=== PATIENT | male | born 1975 | race Two or more races ===

== ENCOUNTER 2020-03-22 23:52 | Inpatient (IN) | payer MEDICAID ==
[~2020-03-22] VITALS: Ht 172.7 cm; Wt 108.1 kg
[2020-03-23] MEDS ORDERED: cloNIDine HCL 0.1 MG TAB PO ONE (01:15)
[2020-03-23] MEDS ORDERED: cefTRIAXone 1GM/50ML D5W 50 ML IV ONE (01:30)
[2020-03-23] MEDS ORDERED: CLINDAMYCIN 900MG IV 50 ML IV ONE (01:30)
[2020-03-23 01:53] LABS: Basophils # (auto) 0.1 10 ^3/uL (0-0.2); Basophils % (auto) 0.8 % (0.0-2.0); Eosinophils # (auto) 0.3 10 ^3/uL (0-0.8); Eosinophils % (auto) 3.2 % (0.0-7.0); Hematocrit 31.7 % (41.0-53.0); Hemoglobin 10.7 g/dL (13.5-17.5); Lymphocytes # (auto) 2.1 10 ^3/uL (0.4-5.4); Lymphocytes % (auto) 20.6 % (10.0-50.0); Mean Corpuscular Hemoglobin 25.3 pg (28.0-32.0); Mean Corpuscular Hgb Conc. 33.7 g/dL (32.0-36.0); Mean Corpuscular Volume 75.1 fL (80.0-100.0); Monocytes % (auto) 9.4 % (0.0-12.0); Neutrophils # (auto) 6.8 10 ^3/uL (1.6-8.6); Platelet Count (auto) 264 10^3/uL (140-450); Red Blood Cells 4.22 10^6/uL (4.5-5.90); Red Cell Distribution Width 14.6 % (11.8-14.3); White Blood Cell 10.2 10^3/uL (4.4-10.8)
[2020-03-23 02:15] LABS: Calcium 8.7 mg/dL (8.5-10.1); Potassium 3.2 mmol/L (3.5-5.1)
[2020-03-23 02:18] LABS: Albumin 3.1 g/dL (3.4-5.0); BUN/Creatinine Ratio 21.8
[2020-03-23 02:21] LABS: Bilirubin, Total 0.2 mg/dL (0.2-1.0); Total Protein 8.4 g/dL (6.4-8.2)
[2020-03-23] MEDS ORDERED: SODIUM CHLORIDE 0.9% 500 ML IV ONE (03:15)
[2020-03-23] MEDS ORDERED: TEMAZEPAM 15 MG CAP PO PRN (03:15)
[2020-03-23] MEDS ORDERED: DEXTROSE (50%) 50ML SYRG IV PRN (03:15)
[2020-03-23] MEDS ORDERED: ACETAMINOPHEN 325 MG TAB PO PRN (03:15)
[2020-03-23] MEDS ORDERED: cloNIDine HCL 0.1 MG TAB PO PRN (03:15)
[2020-03-23] MEDS ORDERED: HYDROcodone-ACET 5/325MG TAB PO PRN (03:15)
[2020-03-23] MEDS ORDERED: ONDANSETRON HCL 4 MG/2 ML VIAL IV PRN (03:15)
[2020-03-23] MEDS ORDERED: CLINDAMYCIN 600MG IV 50 ML IV SCH (06:00)
[2020-03-23] MEDS: InsuLIN REG 1unit/0.01ml Soln (100units/ml) SC SCH ×4 (06:45→22:14)
[2020-03-23] MEDS: ACCU-CHEK COMFORT CURVE STRIP VI SCH ×4 (06:45→21:15)
--- NOTE | 2020-03-23 08:25 | NUR ---
PATIENT IN LOW FOWLERS. AWAKE, ALERT, ORIENTEDx4. DENIES PAIN AT MOMENT. EFFORTLESS BREATHING ON ROOM AIR. PRESENT FOR WOUND TO LATERAL OUTER ASPECT OF RIGHT FOOT. IV PRESENT TO LAC#20. PT ORIENTED TO ROOM ENVIRONMENT, BED LOCKED AND IN LOWEST POSITION, CALL LIGHT WITHIN REACH. WILL CONTINUE TO MONITOR.
[2020-03-23] MEDS: PANTOPRAZOLE 40 MG TAB PO SCH (09:49)
[2020-03-23] MEDS: cefTRIAXone 1GM/50ML D5W 50 ML IV SCH (09:50)
[2020-03-23] MEDS ORDERED: LISINOPRIL 5 MG TAB PO SCH (10:00)
[2020-03-23] MEDS ORDERED: METOPROLOL TARTRATE 25 MG TAB PO SCH (10:00)
[2020-03-23] MEDS ORDERED: SIMV-8 PO (10:12)
[2020-03-23] MEDS ORDERED: METO25TA5 PO (10:12)
[2020-03-23] MEDS ORDERED: INSLANTI SC (10:12)
[2020-03-23] MEDS ORDERED: CHLO50TA PO (10:12)
[2020-03-23] MEDS ORDERED: ASPI-543 PO (10:12)
[2020-03-23] MEDS ORDERED: INSREG3 IV (10:13)
[2020-03-23] MEDS ORDERED: VANCOMYCIN PER PHARMACY 0 MG IV SCH (10:45)
[2020-03-23] MEDS ORDERED: VANCOMYCIN 1GM/250ML 250 ML IV ONE (10:45)
--- NOTE | 2020-03-23 11:00 | NUR ---
DR. BROOKS IN TO SEE PT. PICC LINE RN MADE AWARE OF PICC ORDER.
[2020-03-23 11:57] LABS: INR 0.96 (0.9-1.15)
[2020-03-23 12:00] LABS: Calcium 8.7 mg/dL (8.5-10.1); Potassium 3.3 mmol/L (3.5-5.1)
--- NOTE | 2020-03-23 12:08 | NUR ---
I faxed home IV ATB order to [facility].
--- NOTE | 2020-03-23 14:55 | NUR ---
PICC line placement Patient educated on need for PICC line placement. All risks and benefits explained and all questions and concerns addressed prior to procedure. Noted past medical history and allergies with no contraindications. INR and Plt counts within acceptable range. 4fr PICC line inserted via Left Brachial vein using [employer] US and Tip Location System. Sterile technique with maximum barrier precautions utilized. Blood return obtained from each of the lumen and flushed easily with NS using proper technique. PICC secured with Stat-lock; biodisc and occlusive dressing applied. Stat portable chest x-ray obtained for PICC tip placement. *Baseline Arm Circumference 34cm. Internal 41 cm. External length 0 cm. PICC lot # [id number]
[2020-03-23] MEDS ORDERED: LIDOCAINE 1% (LOCAL ANESTH.) PF 5ml SDV ID ONE (15:00)
--- NOTE | 2020-03-23 15:00 | NUR ---
Assessment Patient is a 44-year-old male who is alert and oriented. Prior to admission patient lived home with family and functioned independently. Prior to admission patient could care for his own ADLs. Patient does not have DME at this time. Per patient he will return to his prior living arrangement post discharge and family will transport him home. Advised patient there is a social service consult for home health IV abx daily for 6 weeks. Per patient his can assist with the IV abx but he would prefer for the home health agency to do daily visits. Informed patient clinical information will be faxed to [facility] and [facility]. Emr Analyst Isabel will assist with the IV abx. Informed patient he has a right to participate in all discharge planning. Patient verbalized understanding and agreed to discharge plan. Faxed clinical information to [facility] and [facility]. Per Irena with [facility] patient has been accepted and will be seen within 24hrs upon d/c day. [facility] will be able to visit patient daily to assist with the IV abx. Informed CM Isabel. Addendum: 03/23/20 at 1506 by JASEN THORPE Amended: Links added.
--- NOTE | 2020-03-23 15:01 | NUR ---
OK to use PICC line Xray completed. OK to use PICC line Primary RN Tomasz notified.
--- NOTE | 2020-03-23 15:53 | NUR ---
obtain authorization from [facility] for [facility] [id number].
[2020-03-23] MEDS ORDERED: POTASSIUM EFFERVESENT TAB 25 MEQ PO ONE (17:15)
[2020-03-23] MEDS: SODIUM CHLORIDE 0.9% 1,000 ML IV SCH (18:10)
--- NOTE | 2020-03-23 19:10 | NUR ---
Opening Shift Note Assumed care of patient, awake and alert. No S/S of distress/SOB or pain. Instructed on POC and to call for assist PRN, will continue to monitor for changes Q1hr and PRN.
[2020-03-23 20:54] LABS: Urine Bacteria NONE SEEN /hpf (None Seen); Urine Blood Negative /uL (Negative); Urine Specific Gravity 1.007 (1.001-1.035); Urine WBC <1 /hpf (0 - 3)
--- NOTE | 2020-03-23 21:00 | NUR ---
Patient is for resection of 5th metatarsal on right foot. Instructed patient that he is NPO after midnight. verbalized understanding.
[2020-03-23 21:07] LABS: Protein, Urine 87.4 mg/dL (0.0-11.9)
[2020-03-23] MEDS: SODIUM CHLOR 0.9% PF (SALINE LOCK) 10ML VIAL/SYR IV SCH (21:14)
[2020-03-23 22:00] VITALS: BP 149/104
[2020-03-23] MEDS: METOPROLOL TARTRATE 25 MG TAB PO SCH (22:13)
[2020-03-24 05:00] VITALS: BP 145/95
--- NOTE | 2020-03-24 05:00 | NUR ---
Consent signed by patient. Blood drawn from Picc line, complete line change, hygiene care by patient, blood sugar check is 214. gave 4 units insulin. patient tolerated.
[2020-03-24] MEDS: SODIUM CHLORIDE 0.9% 1,000 ML IV SCH (05:55)
[2020-03-24] MEDS: ACCU-CHEK COMFORT CURVE STRIP VI SCH ×4 (05:56→22:30)
[2020-03-24] MEDS: InsuLIN REG 1unit/0.01ml Soln (100units/ml) SC SCH ×4 (06:28→22:32)
[2020-03-24 06:33] LABS: Basophils # (auto) 0.1 10 ^3/uL (0-0.2); Eosinophils # (auto) 0.2 10 ^3/uL (0-0.8); Monocytes # (auto) 1.1 10 ^3/uL (0-1.3); Nucleated Red Blood Cells % 0.1 %
[2020-03-24 06:36] LABS: Basophils % (auto) 0.5 % (0.0-2.0); Eosinophils % (auto) 1.5 % (0.0-7.0); Hematocrit 31.6 % (41.0-53.0); Hemoglobin 10.6 g/dL (13.5-17.5); Lymphocytes # (auto) 2.2 10 ^3/uL (0.4-5.4); Lymphocytes % (auto) 20.5 % (10.0-50.0); Mean Corpuscular Hemoglobin 25.1 pg (28.0-32.0); Mean Corpuscular Hgb Conc. 33.5 g/dL (32.0-36.0); Mean Corpuscular Volume 75.1 fL (80.0-100.0); Monocytes % (auto) 10.7 % (0.0-12.0); Neutrophils # (auto) 7.1 10 ^3/uL (1.6-8.6); Neutrophils % (auto) 66.8 % (37.0-80.0); Platelet Count (auto) 277 10^3/uL (140-450); Red Blood Cells 4.22 10^6/uL (4.5-5.90); Red Cell Distribution Width 14.8 % (11.8-14.3); White Blood Cell 10.6 10^3/uL (4.4-10.8)
[2020-03-24 06:51] LABS: Calcium 8.7 mg/dL (8.5-10.1); Potassium 3.7 mmol/L (3.5-5.1)
[2020-03-24 06:53] LABS: BUN/Creatinine Ratio 17.7
--- NOTE | 2020-03-24 07:30 | NUR ---
Picture of wound taken on Right foot.
--- NOTE | 2020-03-24 08:00 | NUR ---
Received pt resting in bed, call light within in reach, pt denies any pain at this time.
[2020-03-24 09:00] VITALS: BP 134/88
[2020-03-24] MEDS: cefTRIAXone 1GM/50ML D5W 50 ML IV SCH (09:14)
[2020-03-24] MEDS: METOPROLOL TARTRATE 25 MG TAB PO SCH ×2 (09:14→22:29)
[2020-03-24] MEDS: SODIUM CHLOR 0.9% PF (SALINE LOCK) 10ML VIAL/SYR IV SCH ×2 (09:14→22:26)
[2020-03-24] MEDS: PANTOPRAZOLE 40 MG TAB PO SCH (09:15)
[2020-03-24] MEDS ORDERED: ceFAZolin 1GM/50ML 50 ML IV ONE (09:52)
[2020-03-24] MEDS ORDERED: VANCOMYCIN 1GM/250ML 250 ML IV SCH (10:00)
--- NOTE | 2020-03-24 10:25 | NUR ---
Pt taken to pre op.
--- NOTE | 2020-03-24 11:05 | NUR ---
[id number] 03/24/20 - [facility] unable to provide service request sent to [facility] at [phone], face sheet, order for home IV Abx, H/P, labs, meds, PICC note, flush orders. Pending review, acceptance and delivery of supplies to patient's home. Addendum: 03/24/20 at 1147 by Isabel Ramos RN [id number] 03/24/20 - Contacted [facility] at [phone], spoke with clinical nursing coordinator Darlene who confirmed receipt of all faxed clinicals, accepting patient for home IV ABX therapy. Darlene stated she would call patient to set up delivery time of supplies and start of services.
[2020-03-24] MEDS ORDERED: MIDAZOLAM HCL 1MG/1ML-2 ML VIAL ONE (11:53)
[2020-03-24] MEDS ORDERED: PROPOFOL 10 MG/ML 20 ML IV ONE (11:53)
[2020-03-24] MEDS ORDERED: SODIUM CHLORIDE LOCK 10 ML ONE (11:53)
[2020-03-24] MEDS ORDERED: ONDANSETRON HCL 4 MG/2 ML VIAL ONE (11:53)
[2020-03-24] MEDS ORDERED: fentaNYL CITRATE 100 MCG/2 ML VL ONE (11:53)
[2020-03-24] MEDS ORDERED: ROPIVACAINE 0.5% (5MG/ML) 20ML AMPULE IJ ONE (12:05)
[2020-03-24] MEDS ORDERED: MORPHINE SULFATE 4 MG/ML SYR/VIAL IV PRN (12:15)
[2020-03-24] MEDS ORDERED: ACCU-CHEK COMFORT CURVE STRIP VI ONE (12:15)
[2020-03-24] MEDS ORDERED: HYDROmorphone HCL 2 MG/ML VL IV PRN (12:15)
[2020-03-24] MEDS ORDERED: METOCLOPRAMIDE HCL 5MG/ml INJ 2ml VIAL IV PRN (12:15)
[2020-03-24] MEDS ORDERED: ceFAZolin 1GM VL ONE (12:27)
--- NOTE | 2020-03-24 14:20 | NUR ---
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
[2020-03-24] MEDS ORDERED: SODIUM CHLORIDE 0.9% 1,000 ML IV ONE ×2 (14:30)
[2020-03-24 17:00] VITALS: BP 130/92
--- NOTE | 2020-03-24 19:30 | NUR ---
Opening Shift Note Assumed care of patient, awake and alert. No S/S of distress/SOB . S/P Resection of Right foot metatarsal. Wrap with gauze and coband. Clean and dry. Patient denies any pain right now. Instructed on POC and to call for assist PRN, will continue to monitor for changes Q1hr and PRN.
[2020-03-24 22:00] VITALS: BP 139/90
--- NOTE | 2020-03-25 00:06 | NUR ---
Pain medication given Patient Pain score is 4/10 on right foot. . gave pain medication. pls see emar
[2020-03-25 05:00] VITALS: BP 150/96
--- NOTE | 2020-03-25 05:30 | NUR ---
Blood draw, Left upper arm PICC line dressing change. Patient tolerated.
[2020-03-25] MEDS: ACCU-CHEK COMFORT CURVE STRIP VI SCH ×3 (05:57→18:39)
[2020-03-25] MEDS: InsuLIN REG 1unit/0.01ml Soln (100units/ml) SC SCH ×3 (05:58→18:40)
[2020-03-25 06:04] LABS: Basophils # (auto) 0.1 10 ^3/uL (0-0.2); Basophils % (auto) 0.6 % (0.0-2.0); Eosinophils # (auto) 0.1 10 ^3/uL (0-0.8); Eosinophils % (auto) 1.3 % (0.0-7.0); Hematocrit 27.5 % (41.0-53.0); Hemoglobin 9.1 g/dL (13.5-17.5); Lymphocytes # (auto) 1.6 10 ^3/uL (0.4-5.4); Neutrophils # (auto) 7.1 10 ^3/uL (1.6-8.6); Red Cell Distribution Width 14.8 % (11.8-14.3); White Blood Cell 10.2 10^3/uL (4.4-10.8)
[2020-03-25 06:07] LABS: Lymphocytes % (auto) 15.5 % (10.0-50.0); Mean Corpuscular Hemoglobin 25.5 pg (28.0-32.0); Mean Corpuscular Hgb Conc. 33.3 g/dL (32.0-36.0); Mean Corpuscular Volume 76.5 fL (80.0-100.0); Monocytes # (auto) 1.3 10 ^3/uL (0-1.3); Monocytes % (auto) 12.6 % (0.0-12.0); Platelet Count (auto) 216 10^3/uL (140-450); Red Blood Cells 3.59 10^6/uL (4.5-5.90)
[2020-03-25 06:23] LABS: Calcium 8.1 mg/dL (8.5-10.1)
--- NOTE | 2020-03-25 07:05 | NUR ---
Closing shift report Patient no SOB, no acute distress. Report given to AM nurse.
[2020-03-25 08:00] VITALS: BP 157/97
[2020-03-25] MEDS ORDERED: CEFTRIAXONE SODIUM 2 GM in D5W 5% 50 ML IV SCH (09:00)
[2020-03-25] MEDS ORDERED: VANCOMYCIN 1GM/250ML 250 ML IV SCH ×2 (09:15→10:00)
[2020-03-25] MEDS: PANTOPRAZOLE 40 MG TAB PO SCH (10:01)
[2020-03-25] MEDS: METOPROLOL TARTRATE 25 MG TAB PO SCH (10:07)
[2020-03-25] MEDS: SODIUM CHLOR 0.9% PF (SALINE LOCK) 10ML VIAL/SYR IV SCH (10:08)
--- NOTE | 2020-03-25 10:52 | NUR ---
I called [facility] ([phone]) and spoke with Bety-she said everything is set up on their end, she is asking if patient will be discharged home today-will follow up with her.
--- NOTE | 2020-03-25 12:25 | NUR ---
spoke with Dr. Jaramillo at nurses station, he said pt is cleared for discharge, pt will follow up in his office next week, pt will keep wound dressing until follow up appointment.
[2020-03-25 13:00] VITALS: BP 139/90
[2020-03-25 14:26] VITALS: BP 139/90
--- NOTE | 2020-03-25 14:33 | NUR ---
Left a message to Dr. Teresa Lai, pt came back positive for MRSA in the wound, pt is cleared by Dr. Jaramillo for discharge. waiting for call back.
[2020-03-25] MEDS ORDERED: HYDR-4833 PO (15:14)
[2020-03-25] MEDS ORDERED: CEFT1PM IV (15:14)
[2020-03-25] MEDS ORDERED: VAN1I IV (15:14)
--- NOTE | 2020-03-25 15:25 | NUR ---
I spoke with [facility] ([phone])-Eli, she is aware patient to discharge home today. Per Eli, IV ATB will be delivered to patient's home between 7-10pm kendal, she has already spoken with patient-[facility] ([phone]) to visit patient tomorrow-made nurse Michelle aware that home IV ATB arrangements are complete.
--- NOTE | 2020-03-25 15:30 | NUR ---
spoke with Carlota Ruiz, she said everything is arranged with home health and home IV antibiotic, pt can go home.
--- NOTE | 2020-03-25 15:51 | NUR ---
fever Left a message with Dr. Teresa Lai, pt's temp 101.2, will give tylenol.
--- NOTE | 2020-03-25 16:11 | NUR ---
Dr. Lai called back, he said to give tylenol and once temperature is normal pt can go home, pt will be on IV antibiotic at home.
[2020-03-25 16:43] VITALS: BP_SYST 147; BP_SYST 161; BP_DIAS 100; BP_DIAS 96
[2020-03-25 17:00] VITALS: BP 161/100
--- NOTE | 2020-03-25 18:15 | NUR ---
SPOKE WITH DR. CHAMBERS, MADE AWARE TEMP WAS 100.5, PER DR. CHAMBERS IT IS OKAY PT CAN GO HOME.
--- NOTE | 2020-03-25 19:14 | NUR ---
RECEIVED REPORT FROM NURSE MENDOZA TO RESUME CARE OF PATIENT. PATIENT HAS ORDERS TO DISCHARGE HOME WITH HOME HEALTH THRU [facility] FOR IV ABT PROVIDED BY [facility] ALL ARRANGED PRIOR TO DISCHARGE. WILL RESUME CARE OF PATIENT.
--- NOTE | 2020-03-25 19:15 | NUR ---
CARE ENDORSED TO HUSSEIN ORTIZ, PT IS STILL WAITING FOR RIDE HOME.
--- NOTE | 2020-03-25 19:44 | NUR ---
DISCHARGE PAPERWORK GIVEN TO PATIENT, INFORMED PATIENT TO SCHEDULE FOLLOW UP APPOINTMENT WITH DR BROOKS REGARDING REVISION OF RIGHT 5TH TOE AMPUTATION AND TO KEEP DRESSING INTACT, DRESSING WILL BE CHANGED AT HIS FOLLOW UP APPOINTMENT. PRESCRIPTIONS SENT TO [facility] INFORMED PATIENT PAIN MEDICATION OF NORCO 5/325MG PO EVERY 6HRS PRN FOR PAIN AND TO BE PICKED UP. IV ABT WILL BE PROVIDED BY [facility] AND SUPPLY IS ARRANGED FOR HOME CARE. PATIENT WILL BE SENT HOME WITH SINGLE LUMEN PICC TO [facility], SOCKINETTE DRESSING APPLIED. PATIENT VERBALIZES UNDERSTANDING NO QUESTIONS ASKED.
--- NOTE | 2020-03-25 21:10 | NUR ---
DISCHARGE PATIENT LEFT VIA WHEELCHAIR ACCOMPANIED BY NURSE AIDKaterin SMITH ALL BELONGINGS WITH PATIENT. PATIENT IN NO APPARENT CARDIAC OR PULMONARY DISTRESS OR SOB. PATIENT DENIES ANY PAIN. PATIENT LEFT THE UNIT @ 2102.
== END 2020-03-25 21:02 | disposition home health service (06) | DRG 305 ==
LOC: ER 23:52 → OVERFLOW 23:53 → WEST WING 03-23 09:18
PROVIDERS: ADMIT Nurse Practitioner; ATTEND Internal Medicine
PROC: 02HV33Z Insertion of Infusion Device into Superior Vena Cava, Percutaneous Approach (ICD-10-PCS; 2020-03-23)
PROC: 0Y6M0ZF Detachment at Right Foot, Partial 5th Ray, Open Approach (ICD-10-PCS; principal; 2020-03-24 12:19)
DX: E11.69 Type 2 diabetes mellitus with other specified complication (principal); M86.171 Other acute osteomyelitis, right ankle and foot; L03.115 Cellulitis of right lower limb; L08.9 Local infection of the skin and subcutaneous tissue, unspecified; E11.65 Type 2 diabetes mellitus with hyperglycemia; E66.9 Obesity, unspecified; N18.3 Chronic kidney disease, stage 3 (moderate); E11.22 Type 2 diabetes mellitus with diabetic chronic kidney disease; E78.5 Hyperlipidemia, unspecified; N17.9 Acute kidney failure, unspecified; R80.9 Proteinuria, unspecified; L97.519 Non-pressure chronic ulcer of other part of right foot with unspecified severity; E11.621 Type 2 diabetes mellitus with foot ulcer; I12.9 Hypertensive chronic kidney disease with stage 1 through stage 4 chronic kidney disease, or unspecified chronic kidney disease; Z95.1 Presence of aortocoronary bypass graft; Z68.36 Body mass index [BMI] 36.0-36.9, adult; Z79.4 Long term (current) use of insulin; B95.62 Methicillin resistant Staphylococcus aureus infection as the cause of diseases classified elsewhere
CPT/HCPCS: 36415; 36569; 71045; 73700; 76775; 80048; 80053; 80202; 81001; 82570; 82962; 83036; 83605; 84156; 85025; 85610; 86850; 86900; 86901; 87040; 87070; 87075; 87076; 87077; 87186; 87205; 93926; C1781; G0378; J0690; J0696; J1815; J2250; J2405; J2704; J3490; J7060

== ENCOUNTER 2021-02-07 19:03 | Emergency (ER) | payer MEDICAID ==
[~2021-02-07] VITALS: Ht 170.2 cm; Wt 104.3 kg
[~2021-02-07 19:03] MED LIST: ASPI-543 PO; CEFT1PM IV; HYDR-4833 PO; INSLANTI SC; INSREG3 IV; METO25TA5 PO; SIMV-8 PO; VAN1I IV
[2021-02-07 19:24] VITALS: BP 133/101
[2021-02-07 23:09] LABS: Basophils # (auto) 0.1 10 ^3/uL (0-0.2); Hemoglobin 11.9 g/dL (13.5-17.5); Monocytes # (auto) 0.9 10 ^3/uL (0-1.3); White Blood Cell 8.1 10^3/uL (4.4-10.8)
[2021-02-07 23:11] LABS: Basophils % (auto) 0.7 % (0.0-2.0); Eosinophils # (auto) 0.1 10 ^3/uL (0-0.8); Eosinophils % (auto) 1.7 % (0.0-7.0); Hematocrit 36.6 % (41.0-53.0); Lymphocytes % (auto) 25.3 % (10.0-50.0); Mean Corpuscular Hemoglobin 25.1 pg (28.0-32.0); Mean Corpuscular Hgb Conc. 32.6 g/dL (32.0-36.0); Monocytes % (auto) 10.7 % (0.0-12.0); Neutrophils % (auto) 61.6 % (37.0-80.0); Red Blood Cells 4.75 10^6/uL (4.5-5.90); Red Cell Distribution Width 15.2 % (11.8-14.3)
[2021-02-07 23:30] LABS: Albumin 3.6 g/dL (3.4-5.0); BUN/Creatinine Ratio 13.4; Calcium 9.1 mg/dL (8.5-10.1); Potassium 3.9 mmol/L (3.5-5.1)
[2021-02-07 23:39] LABS: Bilirubin, Total 0.3 mg/dL (0.2-1.0); CRP High Sensitivity 7.89 mg/dL (< 0.3); Total Protein 8.2 g/dL (6.4-8.2)
[2021-02-08] MEDS ORDERED: cefTRIAXone SOD 1,000 MG VL IM ONE (01:30)
== END 2021-02-08 01:35 | disposition home or self-care (01) ==
LOC: ER 19:06
DX: L03.031 Cellulitis of right toe (principal); D64.9 Anemia, unspecified; R60.9 Edema, unspecified; E66.9 Obesity, unspecified; E11.9 Type 2 diabetes mellitus without complications; I10 Essential (primary) hypertension; Z68.36 Body mass index [BMI] 36.0-36.9, adult
CPT/HCPCS: 36415; 73700; 80053; 83605; 85025; 85652; 86141; 87040; 96372; 99284; J0696

== ENCOUNTER 2021-05-15 15:21 | Inpatient (IN) | payer MEDICAID ==
[~2021-05-15] VITALS: Ht 170.2 cm; Wt 106.7 kg
[2021-05-15] MEDS ORDERED: SODIUM CHLORIDE 0.9% 1,000 ML IV ONE (16:15)
[2021-05-15] MEDS ORDERED: PIPERACILLIN-TAZOB 3.375GM 100 ML IV ONE (16:15)
[2021-05-15] MEDS ORDERED: VANCOMYCIN PER PHARMACY 0 MG IV SCH (16:15)
[2021-05-15 17:01] LABS: Eosinophils # (auto) 0.1 10 ^3/uL (0-0.8); Hemoglobin 10.2 g/dL (13.5-17.5); Lymphocytes # (auto) 1.2 10 ^3/uL (0.4-5.4)
[2021-05-15 17:03] LABS: Basophils # (auto) 0 10 ^3/uL (0-0.2); Basophils % (auto) 0.5 % (0.0-2.0); Eosinophils % (auto) 1.1 % (0.0-7.0); Hematocrit 31.6 % (41.0-53.0); Lymphocytes % (auto) 13.2 % (10.0-50.0); Mean Corpuscular Hemoglobin 25.4 pg (28.0-32.0); Mean Corpuscular Hgb Conc. 32.2 g/dL (32.0-36.0); Mean Corpuscular Volume 78.9 fL (80.0-100.0); Monocytes # (auto) 0.9 10 ^3/uL (0-1.3); Monocytes % (auto) 9.5 % (0.0-12.0); Neutrophils % (auto) 75.7 % (37.0-80.0); Red Cell Distribution Width 16.1 % (11.8-14.3); White Blood Cell 9.3 10^3/uL (4.4-10.8)
[2021-05-15 17:29] LABS: Albumin 3.1 g/dL (3.4-5.0); Calcium 8.5 mg/dL (8.5-10.1); Potassium 5.2 mmol/L (3.5-5.1)
[2021-05-15 17:34] LABS: BUN/Creatinine Ratio 13.2; Bilirubin, Total 0.3 mg/dL (0.2-1.0)
[2021-05-15] MEDS ORDERED: VANCOMYCIN 1GM/250ML 250 ML IV ONE (19:00)
[2021-05-15] MEDS ORDERED: HYDROcodone-ACET 5/325MG TAB PO PRN (21:30)
[2021-05-15] MEDS ORDERED: DOCUSATE SOD 100 MG CAP PO PRN (21:30)
[2021-05-15] MEDS ORDERED: MORPHINE SULFATE 4 MG/ML SYR/VIAL IV PRN (21:30)
[2021-05-15] MEDS ORDERED: ONDANSETRON HCL 4 MG/2 ML VIAL IV PRN (21:30)
[2021-05-15] MEDS ORDERED: ATORVASTATIN 20 MG TAB PO SCH (22:00)
[2021-05-15] MEDS ORDERED: MORPHINE SULFATE INJECTION 2 MG/ML SYRG IV PRN (23:15)
[2021-05-15] MEDS ORDERED: NITROGLYCERIN 0.4 MG SL TAB SL PRN (23:15)
[2021-05-15] MEDS ORDERED: DEXTROSE (50%) 50ML SYRG IV PRN (23:15)
[2021-05-15] MEDS: ASCORBIC ACID 500 MG TAB PO SCH (23:26)
[2021-05-16] MEDS: PIPERACILLIN-TAZOB 2.25GM 50 ML IV SCH ×2 (00:53→12:11)
[2021-05-16 07:09] LABS: Basophils # (auto) 0.1 10 ^3/uL (0-0.2); Basophils % (auto) 0.6 % (0.0-2.0); Eosinophils # (auto) 0.3 10 ^3/uL (0-0.8); Hematocrit 29.1 % (41.0-53.0); Hemoglobin 9.7 g/dL (13.5-17.5); Lymphocytes # (auto) 1.7 10 ^3/uL (0.4-5.4); Lymphocytes % (auto) 18.3 % (10.0-50.0); Mean Corpuscular Hemoglobin 26.1 pg (28.0-32.0); Mean Corpuscular Hgb Conc. 33.1 g/dL (32.0-36.0); Mean Corpuscular Volume 78.7 fL (80.0-100.0); Monocytes # (auto) 1.2 10 ^3/uL (0-1.3); Monocytes % (auto) 12.4 % (0.0-12.0); Neutrophils # (auto) 6.2 10 ^3/uL (1.6-8.6); Neutrophils % (auto) 65.7 % (37.0-80.0); Red Cell Distribution Width 16.3 % (11.8-14.3); White Blood Cell 9.5 10^3/uL (4.4-10.8)
[2021-05-16 07:26] LABS: BUN/Creatinine Ratio 14.5; Calcium 8.3 mg/dL (8.5-10.1)
[2021-05-16] MEDS: InsuLIN REG 1unit/0.01ml Soln (100units/ml) SC SCH ×4 (08:23→22:00)
[2021-05-16] MEDS: ACCU-CHEK COMFORT CURVE STRIP VI SCH ×4 (08:23→22:00)
[2021-05-16] MEDS: HEPARIN SODIUM (PORCINE) 5000 UNITS/ML 1ML VIAL SC SCH ×3 (08:24→22:00)
[2021-05-16] MEDS ORDERED: ASPirin 81 mg TAB PO SCH (10:00)
[2021-05-16] MEDS ORDERED: VANCOMYCIN 1GM/250ML 250 ML IV ONE (10:00)
[2021-05-16 10:04] VITALS: BP 147/96
[2021-05-16] MEDS: MULTIPLE VITAMIN TAB PO SCH (10:29)
[2021-05-16] MEDS: ZINC SULFATE 220mg CAP or TAB PO SCH (10:30)
[2021-05-16] MEDS: FAMOTIDINE (10MG/ML) 2ML VL IV SCH (10:30)
[2021-05-16] MEDS: ASCORBIC ACID 500 MG TAB PO SCH ×2 (10:30→22:00)
[2021-05-16] MEDS ORDERED: INSU1INJ19 SC (13:02)
[2021-05-16] MEDS ORDERED: ASPI1TAB20 PO (13:02)
[2021-05-16] MEDS ORDERED: INSU100I26 SC (13:02)
[2021-05-16] MEDS ORDERED: CYA100I PO (13:02)
[2021-05-16] MEDS ORDERED: CHLO50TA PO (13:02)
[2021-05-16] MEDS ORDERED: MET50T PO (13:02)
[2021-05-16] MEDS ORDERED: FENO145T27 OR (13:02)
[2021-05-16] MEDS ORDERED: METF-489 PO (13:02)
[2021-05-16] MEDS ORDERED: HYDROcodone-ACET 5/325MG TAB PO PRN (14:00)
[2021-05-16 17:20] VITALS: BP 153/89
[2021-05-16 17:37] VITALS: BP 146/76
[2021-05-16 20:00] VITALS: BP 157/87
[2021-05-16 20:33] LABS: Urine Bacteria FEW /hpf (None Seen); Urine Blood 1+ /uL (Negative); Urine Specific Gravity 1.012 (1.001-1.035); Urine WBC 1 /hpf (0 - 3)
[2021-05-16] MEDS: ATORVASTATIN 20 MG TAB PO SCH (22:00)
[2021-05-16] MEDS: METOPROLOL TARTRATE 25 MG TAB PO SCH (22:00)
[2021-05-16] MEDS ORDERED: INSULIN LANTUS (GLARGINE) 1 /0.01ml (100units/ml) SC SCH (22:00)
[2021-05-16] MEDS: INSULIN LANTUS (GLARGINE) 1 /0.01ml (100units/ml) SC SCH (22:00)
[2021-05-16 22:13] VITALS: BP 157/87
[2021-05-17 05:30] VITALS: BP 122/75
[2021-05-17 05:43] LABS: Eosinophils # (auto) 0.3 10 ^3/uL (0-0.8)
[2021-05-17 05:46] LABS: Basophils # (auto) 0 10 ^3/uL (0-0.2); Basophils % (auto) 0.7 % (0.0-2.0); Eosinophils % (auto) 3.8 % (0.0-7.0); Hematocrit 27.8 % (41.0-53.0); Hemoglobin 9.2 g/dL (13.5-17.5); Lymphocytes # (auto) 1.7 10 ^3/uL (0.4-5.4); Lymphocytes % (auto) 24.4 % (10.0-50.0); Mean Corpuscular Hemoglobin 25.6 pg (28.0-32.0); Mean Corpuscular Hgb Conc. 33.1 g/dL (32.0-36.0); Mean Corpuscular Volume 77.5 fL (80.0-100.0); Neutrophils % (auto) 57.1 % (37.0-80.0); Red Blood Cells 3.59 10^6/uL (4.5-5.90); Red Cell Distribution Width 15.8 % (11.8-14.3); White Blood Cell 6.9 10^3/uL (4.4-10.8)
[2021-05-17 05:50] LABS: Calcium 8.2 mg/dL (8.5-10.1)
[2021-05-17 05:52] LABS: BUN/Creatinine Ratio 13.3
[2021-05-17] MEDS: InsuLIN REG 1unit/0.01ml Soln (100units/ml) SC SCH ×4 (05:59→22:29)
[2021-05-17] MEDS: ACCU-CHEK COMFORT CURVE STRIP VI SCH ×4 (05:59→21:59)
[2021-05-17 06:00] LABS: Cholesterol 103 mg/dL (< 200); HDL Cholesterol 27 mg/dL (40-59); LDL Cholesterol 66 mg/dL (< 100); Triglycerides 124 mg/dL (< 150)
[2021-05-17 09:00] VITALS: BP 143/90
[2021-05-17] MEDS ORDERED: PATIENTS OWN MEDICATION (Fenofibrate 160 MG) OR SCH (10:00)
[2021-05-17] MEDS ORDERED: ERTAPENEM SOD INJ 1 GM in SODIUM CHL 0.9% 50 ML IV SCH (10:00)
[2021-05-17] MEDS: ASPirin-EC 81 mg tab PO SCH (10:02)
[2021-05-17] MEDS: ZINC SULFATE 220mg CAP or TAB PO SCH (10:02)
[2021-05-17] MEDS: ASCORBIC ACID 500 MG TAB PO SCH (10:02)
[2021-05-17] MEDS: METOPROLOL TARTRATE 25 MG TAB PO SCH ×2 (10:04→21:58)
[2021-05-17] MEDS: MULTIPLE VITAMIN TAB PO SCH (10:04)
[2021-05-17] MEDS: HEPARIN SODIUM (PORCINE) 5000 UNITS/ML 1ML VIAL SC SCH ×2 (10:25→22:29)
[2021-05-17] MEDS: INSULIN LANTUS (GLARGINE) 1 /0.01ml (100units/ml) SC SCH ×2 (11:18→22:29)
[2021-05-17 12:23] LABS: INR 1.04 (0.9-1.15); Partial Thromboplastin Time 28.8 sec (23.6-33.0)
[2021-05-17 13:00] VITALS: BP 124/85
[2021-05-17] MEDS ORDERED: SODIUM CHLORIDE 0.9% 1,000 ML IV ONE (13:00)
[2021-05-17] MEDS: PROMETHAZINE W/CODEINE 5 ML ORAL SYRUP PO PRN (15:52)
[2021-05-17 17:00] VITALS: BP 155/104
[2021-05-17] MEDS ORDERED: LIDOCAINE 1% (LOCAL ANESTH.) PF 5ml SDV ID ONE (17:15)
[2021-05-17] MEDS ORDERED: LABETALOL HCL 5 MG/ML 4ML SYRINGE IV PRN (17:45)
[2021-05-17] MEDS: SODIUM CHLOR 0.9% PF (SALINE LOCK) 10ML VIAL/SYR IV SCH (21:57)
[2021-05-17] MEDS: ATORVASTATIN 20 MG TAB PO SCH (21:57)
[2021-05-17 22:00] VITALS: BP 144/90
[2021-05-18 04:30] VITALS: BP 134/93
[2021-05-18] MEDS: ACCU-CHEK COMFORT CURVE STRIP VI SCH ×4 (06:00→21:42)
[2021-05-18] MEDS: InsuLIN REG 1unit/0.01ml Soln (100units/ml) SC SCH ×5 (06:06→22:01)
[2021-05-18] MEDS ORDERED: ceFAZolin 1GM/50ML 100 ML IV ONE (07:11)
[2021-05-18] MEDS ORDERED: ceFAZolin 1GM VL ONE (07:13)
[2021-05-18] MEDS ORDERED: MEPERIDINE HCL (25 MG/ML) 1ML VIAL ONE (07:36)
[2021-05-18] MEDS ORDERED: MIDAZOLAM HCL 2MG/2ML 2ml VIAL (1mg/ml) ONE (07:36)
[2021-05-18] MEDS ORDERED: fentaNYL CITRATE 100 MCG/2 ML VL ONE (07:36)
[2021-05-18] MEDS ORDERED: ROPIVACAINE 0.5% (5MG/ML) 20ML AMPULE IJ ONE (07:53)
[2021-05-18] MEDS ORDERED: PROPOFOL 10 MG/ML 20 ML IV ONE (07:57)
[2021-05-18] MEDS ORDERED: DexAMETHasone SOD PHOS 10MG/1ML VIAL INJ ONE (07:57)
[2021-05-18] MEDS ORDERED: PHENYLEPHRINE HCL 10 MG/ML VL IV ONE (08:00)
[2021-05-18] MEDS ORDERED: NEOMYCIN-BACITRACIN-POLYM 15GM TOP OINT TOP ONE (08:17)
[2021-05-18] MEDS ORDERED: HYDROmorphone HCL 2 MG/ML VL IV PRN (08:30)
[2021-05-18] MEDS ORDERED: LABETALOL HCL 5 MG/ML 4ML SYRINGE IV PRN (08:30)
[2021-05-18] MEDS ORDERED: MORPHINE SULFATE 4 MG/ML SYR/VIAL IV PRN (08:30)
[2021-05-18] MEDS ORDERED: ePHEDrine SULFATE 50 MG/ML AMP IV PRN (08:30)
[2021-05-18] MEDS ORDERED: ACCU-CHEK COMFORT CURVE STRIP VI ONE (08:30)
[2021-05-18] MEDS ORDERED: MIDAZOLAM HCL 2MG/2ML 2ml VIAL (1mg/ml) IV PRN (08:30)
[2021-05-18] MEDS ORDERED: ONDANSETRON HCL 4 MG/2 ML VIAL IV PRN (08:30)
[2021-05-18] MEDS: HEPARIN SODIUM (PORCINE) 5000 UNITS/ML 1ML VIAL SC SCH ×2 (10:00→21:41)
[2021-05-18] MEDS: INSULIN LANTUS (GLARGINE) 1 /0.01ml (100units/ml) SC SCH ×2 (10:00→22:05)
[2021-05-18] MEDS: FAMOTIDINE (10MG/ML) 2ML VL IV SCH (10:33)
[2021-05-18] MEDS: SODIUM CHLOR 0.9% PF (SALINE LOCK) 10ML VIAL/SYR IV SCH ×2 (10:33→21:38)
[2021-05-18] MEDS: MULTIPLE VITAMIN TAB PO SCH (10:34)
[2021-05-18] MEDS: METOPROLOL TARTRATE 25 MG TAB PO SCH ×2 (10:34→21:40)
[2021-05-18] MEDS: ASPirin-EC 81 mg tab PO SCH (10:34)
[2021-05-18] MEDS: ERTAPENEM SOD INJ 0.5 GM in SODIUM CHL 0.9% 50 ML IV SCH (11:45)
[2021-05-18 12:48] VITALS: BP 126/83
[2021-05-18 17:00] VITALS: BP 138/91
[2021-05-18] MEDS: ATORVASTATIN 20 MG TAB PO SCH (21:39)
[2021-05-18 22:00] VITALS: BP 160/88
[2021-05-19] MEDS: PROMETHAZINE W/CODEINE 5 ML ORAL SYRUP PO PRN (02:06)
[2021-05-19 05:00] VITALS: BP 136/79
[2021-05-19] MEDS: ACCU-CHEK COMFORT CURVE STRIP VI SCH ×3 (05:59→16:24)
[2021-05-19] MEDS: InsuLIN REG 1unit/0.01ml Soln (100units/ml) SC SCH ×2 (06:06→12:08)
[2021-05-19 09:08] VITALS: BP 152/97
[2021-05-19] MEDS: SODIUM CHLOR 0.9% PF (SALINE LOCK) 10ML VIAL/SYR IV SCH (10:21)
[2021-05-19] MEDS: ASPirin-EC 81 mg tab PO SCH (10:21)
[2021-05-19] MEDS: ERTAPENEM SOD INJ 0.5 GM in SODIUM CHL 0.9% 50 ML IV SCH ×2 (10:21→10:41)
[2021-05-19] MEDS: MULTIPLE VITAMIN TAB PO SCH (10:22)
[2021-05-19] MEDS: METOPROLOL TARTRATE 25 MG TAB PO SCH (10:22)
[2021-05-19] MEDS: HEPARIN SODIUM (PORCINE) 5000 UNITS/ML 1ML VIAL SC SCH (10:22)
[2021-05-19] MEDS: INSULIN LANTUS (GLARGINE) 1 /0.01ml (100units/ml) SC SCH (10:25)
[2021-05-19 12:57] VITALS: BP 144/82
[2021-05-19 16:37] VITALS: BP 150/107
[2021-05-19 17:00] VITALS: BP 144/82
== END 2021-05-19 18:53 | disposition home health service (06) | DRG 314 ==
LOC: ER 15:21 → TELE 23:02 → TELE-CENTR 05-16 09:05
PROVIDERS: ADMIT Nurse Practitioner Family; ATTEND Hospitalist
PROC: 0Y6V0Z0 Detachment at Right 4th Toe, Complete, Open Approach (ICD-10-PCS; principal; 2021-05-18 07:44)
PROC: 02HV33Z Insertion of Infusion Device into Superior Vena Cava, Percutaneous Approach (ICD-10-PCS; 2021-05-19)
DX: E10.69 Type 1 diabetes mellitus with other specified complication (principal); N17.9 Acute kidney failure, unspecified; E44.1 Mild protein-calorie malnutrition; E10.22 Type 1 diabetes mellitus with diabetic chronic kidney disease; E10.52 Type 1 diabetes mellitus with diabetic peripheral angiopathy with gangrene; L97.519 Non-pressure chronic ulcer of other part of right foot with unspecified severity; M86.8X7 Other osteomyelitis, ankle and foot; L03.031 Cellulitis of right toe; B95.61 Methicillin susceptible Staphylococcus aureus infection as the cause of diseases classified elsewhere; Z20.822 Contact with and (suspected) exposure to COVID-19; D64.9 Anemia, unspecified; N18.4 Chronic kidney disease, stage 4 (severe); E10.65 Type 1 diabetes mellitus with hyperglycemia; E66.9 Obesity, unspecified; R20.0 Anesthesia of skin; E87.5 Hyperkalemia; E10.621 Type 1 diabetes mellitus with foot ulcer; I12.9 Hypertensive chronic kidney disease with stage 1 through stage 4 chronic kidney disease, or unspecified chronic kidney disease; Z68.36 Body mass index [BMI] 36.0-36.9, adult; Z83.3 Family history of diabetes mellitus; Z95.1 Presence of aortocoronary bypass graft; Z79.4 Long term (current) use of insulin; Z82.49 Family history of ischemic heart disease and other diseases of the circulatory system
CPT/HCPCS: 36415; 36569; 71046; 73620; 73700; 76775; 80048; 80053; 80061; 80202; 81001; 82565; 82962; 83036; 84484; 85025; 85610; 85652; 85730; 86141; 86850; 86900; 86901; 87040; 87070; 87075; 87076; 87077; 87186; 87205; 87426; 93005; 93925; 93970; 96365; G0378; J0690; J1100; J1335; J1815; J2250; J2543; J2704; J3490

== ENCOUNTER 2022-03-13 19:51 | Inpatient (IN) | payer MEDICAID ==
[~2022-03-13] VITALS: Ht 170.2 cm; Wt 101.5 kg
[~2022-03-13 19:51] MED LIST changes: -ASPI-543 PO; +ASPI1TAB20 PO; -CEFT1PM IV; +CYA100I PO; +FENO145T27 OR; -INSLANTI SC; -INSREG3 IV; +INSU100I26 SC; +INSU1INJ19 SC; -VAN1I IV
[2022-03-13 22:27] LABS: Albumin 3.3 g/dL (3.4-5.0); Basophils # (auto) 0.1 10 ^3/uL (0-0.2); Calcium 9.1 mg/dL (8.5-10.1); Eosinophils # (auto) 0.3 10 ^3/uL (0-0.8); Hemoglobin 10.2 g/dL (13.5-17.5); Lymphocytes # (auto) 1.5 10 ^3/uL (0.4-5.4); Monocytes # (auto) 0.6 10 ^3/uL (0-1.3); White Blood Cell 5.9 10^3/uL (4.4-10.8)
[2022-03-13 22:29] LABS: Basophils % (auto) 1.2 % (0.0-2.0); Eosinophils % (auto) 4.5 % (0.0-7.0); Hematocrit 31.4 % (41.0-53.0); Lymphocytes % (auto) 26.2 % (10.0-50.0); Mean Corpuscular Hemoglobin 25.9 pg (28.0-32.0); Mean Corpuscular Hgb Conc. 32.4 g/dL (32.0-36.0); Mean Corpuscular Volume 79.9 fL (80.0-100.0); Monocytes % (auto) 9.8 % (0.0-12.0); Neutrophils # (auto) 3.4 10 ^3/uL (1.6-8.6); Neutrophils % (auto) 58.3 % (37.0-80.0); Nucleated Red Blood Cells % 0.2 %; Red Blood Cells 3.93 10^6/uL (4.5-5.90)
[2022-03-13 22:32] LABS: BUN/Creatinine Ratio 14.7; Bilirubin, Total 0.3 mg/dL (0.2-1.0); Total Protein 7.6 g/dL (6.4-8.2)
[2022-03-13] MEDS ORDERED: VANCOMYCIN 1GM/250ML 250 ML IV ONE (23:00)
[2022-03-13] MEDS ORDERED: SODIUM CHLORIDE 0.9% 500 ML IV ONE (23:00)
[2022-03-13] MEDS ORDERED: cefTRIAXone 1GM/50ML D5W 50 ML IV ONE (23:15)
[2022-03-14] MEDS ORDERED: ACETAMINOPHEN 325 MG TAB PO PRN (01:15)
[2022-03-14] MEDS ORDERED: HYDROcodone-ACET 5/325MG TAB PO PRN (01:15)
[2022-03-14] MEDS ORDERED: ONDANSETRON HCL 4 MG/2 ML VIAL IV PRN (01:15)
[2022-03-14] MEDS ORDERED: VANCOMYCIN PER PHARMACY 0 MG IV SCH (01:15)
[2022-03-14] MEDS ORDERED: DEXTROSE (50%) 50ML SYRG IV PRN (01:15)
[2022-03-14] MEDS ORDERED: SODIUM CHLORIDE 0.9% 500 ML IV ONE (01:15)
[2022-03-14] MEDS ORDERED: METOPROLOL TARTRATE 25 MG TAB PO ONE (01:15)
[2022-03-14 03:21] VITALS: BP_SYST 145; BP_SYST 149; BP_DIAS 77; BP_DIAS 78
[2022-03-14] MEDS: InsuLIN REG 1unit/0.01ml Soln (100units/ml) SC SCH ×4 (06:00→23:49)
[2022-03-14] MEDS: ACCU-CHEK COMFORT CURVE STRIP VI SCH ×3 (06:56→18:03)
[2022-03-14 08:34] VITALS: BP 159/102
[2022-03-14] MEDS: ASPirin 81 mg TAB PO SCH (08:46)
[2022-03-14] MEDS: PANTOPRAZOLE 40 MG TAB PO SCH (08:47)
[2022-03-14] MEDS: FUROSEMIDE 20 MG TAB PO SCH (08:47)
[2022-03-14] MEDS: METOPROLOL TARTRATE 25 MG TAB PO SCH ×2 (08:48→22:10)
[2022-03-14] MEDS ORDERED: amLODIPine BESYLATE 5 MG TAB PO SCH (10:00)
[2022-03-14 12:33] VITALS: BP 158/103
[2022-03-14] MEDS ORDERED: amLODIPine BESYLATE 5 MG TAB PO ONE (15:15)
[2022-03-14] MEDS ORDERED: hydrALAZINE HCL 20 MG/ML VL IV PRN (15:15)
[2022-03-14 15:16] LABS: INR 1.04 (0.9-1.15); Partial Thromboplastin Time 26.2 sec (24.6-33.4)
[2022-03-14 15:52] LABS: Basophils # (auto) 0.1 10 ^3/uL (0-0.2); Basophils % (auto) 1.3 % (0.0-2.0); Eosinophils # (auto) 0.2 10 ^3/uL (0-0.8); Eosinophils % (auto) 4.7 % (0.0-7.0); Hematocrit 31.8 % (41.0-53.0); Lymphocytes # (auto) 1.2 10 ^3/uL (0.4-5.4); Mean Corpuscular Hemoglobin 25.3 pg (28.0-32.0); Mean Corpuscular Hgb Conc. 31.6 g/dL (32.0-36.0); Mean Corpuscular Volume 79.9 fL (80.0-100.0); Monocytes # (auto) 0.5 10 ^3/uL (0-1.3); Monocytes % (auto) 10.5 % (0.0-12.0); Neutrophils # (auto) 2.6 10 ^3/uL (1.6-8.6); Neutrophils % (auto) 56.5 % (37.0-80.0); Red Blood Cells 3.97 10^6/uL (4.5-5.90); Red Cell Distribution Width 15.6 % (11.8-14.3); White Blood Cell 4.6 10^3/uL (4.4-10.8)
[2022-03-14 16:08] LABS: BUN/Creatinine Ratio 14.1; Calcium 8.4 mg/dL (8.5-10.1); Potassium 4.9 mmol/L (3.5-5.1)
[2022-03-14 17:00] VITALS: BP 159/109
[2022-03-14] MEDS: LISINOPRIL 10 MG TAB PO SCH (17:00)
[2022-03-14] MEDS ORDERED: FURO20TA3 PO (17:07)
[2022-03-14] MEDS ORDERED: AML5T PO (17:07)
[2022-03-14 22:00] VITALS: BP 178/110
[2022-03-14] MEDS ORDERED: cefTRIAXone 1GM/50ML D5W 50 ML IV SCH (22:00)
[2022-03-14] MEDS: ATORVASTATIN 20 MG TAB PO SCH (22:10)
[2022-03-15] MEDS: ACCU-CHEK COMFORT CURVE STRIP VI SCH ×4 (03:39→18:57)
[2022-03-15 05:00] VITALS: BP 127/84
[2022-03-15 05:22] LABS: Basophils # (auto) 0.1 10 ^3/uL (0-0.2); Hemoglobin 9.8 g/dL (13.5-17.5); Lymphocytes # (auto) 1.2 10 ^3/uL (0.4-5.4); Mean Corpuscular Hgb Conc. 32.4 g/dL (32.0-36.0); Monocytes # (auto) 0.6 10 ^3/uL (0-1.3); Neutrophils # (auto) 2.7 10 ^3/uL (1.6-8.6)
[2022-03-15 05:25] LABS: Basophils % (auto) 1.4 % (0.0-2.0); Eosinophils # (auto) 0.2 10 ^3/uL (0-0.8); Eosinophils % (auto) 4.6 % (0.0-7.0); Lymphocytes % (auto) 25.5 % (10.0-50.0); Mean Corpuscular Hemoglobin 25.7 pg (28.0-32.0); Mean Corpuscular Volume 79.3 fL (80.0-100.0); Monocytes % (auto) 12.1 % (0.0-12.0); Neutrophils % (auto) 56.4 % (37.0-80.0); Red Blood Cells 3.79 10^6/uL (4.5-5.90); Red Cell Distribution Width 15.7 % (11.8-14.3); White Blood Cell 4.9 10^3/uL (4.4-10.8)
[2022-03-15 05:43] LABS: Albumin 2.8 g/dL (3.4-5.0); Calcium 8.6 mg/dL (8.5-10.1); Potassium 4.3 mmol/L (3.5-5.1)
[2022-03-15 05:45] LABS: BUN/Creatinine Ratio 14.1
[2022-03-15 05:57] LABS: Bilirubin, Total 0.2 mg/dL (0.2-1.0); Total Protein 6.4 g/dL (6.4-8.2)
[2022-03-15] MEDS: InsuLIN REG 1unit/0.01ml Soln (100units/ml) SC SCH ×3 (06:00→18:56)
[2022-03-15] MEDS ORDERED: MIDAZOLAM HCL 2MG/2ML 2ml VIAL (1mg/ml) ONE (07:55)
[2022-03-15] MEDS ORDERED: fentaNYL CITRATE 100 MCG/2 ML VL ONE (07:55)
[2022-03-15] MEDS ORDERED: SODIUM CHLORIDE LOCK 10 ML ONE (07:55)
[2022-03-15] MEDS ORDERED: PROPOFOL 10 MG/ML 20 ML IV ONE (07:55)
[2022-03-15] MEDS ORDERED: ONDANSETRON HCL 4 MG/2 ML VIAL ONE (07:55)
[2022-03-15] MEDS ORDERED: ceFAZolin 1GM/50ML 100 ML IV ONE (07:58)
[2022-03-15] MEDS ORDERED: ceFAZolin 1GM VL ONE (08:15)
[2022-03-15] MEDS ORDERED: ROPIVACAINE 0.5% (5MG/ML) 20ML AMPULE IJ ONE (08:15)
[2022-03-15 09:07] VITALS: BP 145/97
[2022-03-15] MEDS: METOPROLOL TARTRATE 25 MG TAB PO SCH (10:00)
[2022-03-15] MEDS: ASPirin 81 mg TAB PO SCH (10:00)
[2022-03-15] MEDS: FUROSEMIDE 20 MG TAB PO SCH (10:00)
[2022-03-15] MEDS: PANTOPRAZOLE 40 MG TAB PO SCH (10:00)
[2022-03-15] MEDS: LISINOPRIL 10 MG TAB PO SCH (10:00)
[2022-03-15] MEDS ORDERED: VANCOMYCIN 1GM/250ML 250 ML IV ONE (13:00)
[2022-03-15] MEDS: amLODIPine BESYLATE 5 MG TAB PO SCH (13:03)
[2022-03-15 13:21] VITALS: BP 151/98
[2022-03-15] MEDS ORDERED: LIDOCAINE 1% (LOCAL ANESTH.) PF 5ml SDV ID ONE (16:15)
[2022-03-15] MEDS ORDERED: LISI-716 PO (16:24)
[2022-03-15] MEDS: metroNIDAZOLE 500 MG TAB PO SCH ×2 (17:00→21:38)
[2022-03-15] MEDS: SODIUM CHLOR 0.9% PF (SALINE LOCK) 10ML VIAL/SYR IV SCH (21:38)
[2022-03-15] MEDS: ATORVASTATIN 20 MG TAB PO SCH (21:38)
[2022-03-15] MEDS: METOPROLOL TARTRATE 50 MG TAB PO SCH (21:40)
[2022-03-15] MEDS: CEFTRIAXONE SODIUM 2 GM in D5W 5% 50 ML IV SCH (21:59)
[2022-03-15 22:00] VITALS: BP 167/103
[2022-03-16] MEDS: ACCU-CHEK COMFORT CURVE STRIP VI SCH ×5 (03:55→22:29)
[2022-03-16 05:00] VITALS: BP 147/90
[2022-03-16] MEDS: metroNIDAZOLE 500 MG TAB PO SCH ×3 (06:05→22:28)
[2022-03-16] MEDS: InsuLIN REG 1unit/0.01ml Soln (100units/ml) SC SCH ×5 (06:09→22:49)
[2022-03-16 06:41] LABS: Basophils # (auto) 0 10 ^3/uL (0-0.2); Eosinophils # (auto) 0.2 10 ^3/uL (0-0.8); Hemoglobin 9.7 g/dL (13.5-17.5); Mean Corpuscular Hemoglobin 25.6 pg (28.0-32.0); Monocytes # (auto) 0.5 10 ^3/uL (0-1.3)
[2022-03-16 06:42] LABS: Basophils % (auto) 0.7 % (0.0-2.0); Eosinophils % (auto) 3.5 % (0.0-7.0); Hematocrit 30.3 % (41.0-53.0); Lymphocytes % (auto) 19.5 % (10.0-50.0); Mean Corpuscular Volume 80.1 fL (80.0-100.0); Monocytes % (auto) 9.9 % (0.0-12.0); Neutrophils # (auto) 3.5 10 ^3/uL (1.6-8.6); Neutrophils % (auto) 66.4 % (37.0-80.0); Red Blood Cells 3.79 10^6/uL (4.5-5.90); Red Cell Distribution Width 15.6 % (11.8-14.3); White Blood Cell 5.3 10^3/uL (4.4-10.8)
[2022-03-16 07:15] LABS: Calcium 8.7 mg/dL (8.5-10.1); Potassium 4.9 mmol/L (3.5-5.1)
[2022-03-16 08:00] VITALS: BP 140/76
[2022-03-16 09:00] VITALS: BP 143/89
[2022-03-16] MEDS: ASPirin 81 mg TAB PO SCH (10:20)
[2022-03-16] MEDS: LISINOPRIL 10 MG TAB PO SCH (10:21)
[2022-03-16] MEDS: PANTOPRAZOLE 40 MG TAB PO SCH (10:21)
[2022-03-16] MEDS: FUROSEMIDE 20 MG TAB PO SCH (10:21)
[2022-03-16] MEDS: METOPROLOL TARTRATE 50 MG TAB PO SCH ×2 (10:21→22:29)
[2022-03-16] MEDS: SODIUM CHLOR 0.9% PF (SALINE LOCK) 10ML VIAL/SYR IV SCH ×2 (10:22→22:28)
[2022-03-16] MEDS: amLODIPine BESYLATE 5 MG TAB PO SCH (10:22)
[2022-03-16] MEDS ORDERED: VANCOMYCIN 1GM/250ML 250 ML IV ONE ×2 (12:00→13:13)
[2022-03-16 13:00] VITALS: BP 152/100
[2022-03-16 17:00] VITALS: BP 146/96
[2022-03-16 22:00] VITALS: BP 156/99
[2022-03-16] MEDS: CEFTRIAXONE SODIUM 2 GM in D5W 5% 50 ML IV SCH (22:27)
[2022-03-16] MEDS: ATORVASTATIN 20 MG TAB PO SCH (22:28)
[2022-03-17 05:00] VITALS: BP 121/88
[2022-03-17 05:54] LABS: Basophils # (auto) 0.1 10 ^3/uL (0-0.2); Calcium 8.5 mg/dL (8.5-10.1); Eosinophils # (auto) 0.2 10 ^3/uL (0-0.8); Eosinophils % (auto) 4.6 % (0.0-7.0); Hematocrit 29.5 % (41.0-53.0); Hemoglobin 9.6 g/dL (13.5-17.5); Lymphocytes # (auto) 1.2 10 ^3/uL (0.4-5.4); Lymphocytes % (auto) 24.4 % (10.0-50.0); Mean Corpuscular Hemoglobin 25.6 pg (28.0-32.0); Mean Corpuscular Hgb Conc. 32.4 g/dL (32.0-36.0); Mean Corpuscular Volume 79.2 fL (80.0-100.0); Monocytes # (auto) 0.6 10 ^3/uL (0-1.3); Neutrophils # (auto) 2.8 10 ^3/uL (1.6-8.6); Potassium 4.6 mmol/L (3.5-5.1); Red Blood Cells 3.73 10^6/uL (4.5-5.90); Red Cell Distribution Width 15.6 % (11.8-14.3)
[2022-03-17 05:57] LABS: BUN/Creatinine Ratio 14.4
[2022-03-17] MEDS: ACCU-CHEK COMFORT CURVE STRIP VI SCH ×3 (06:32→17:12)
[2022-03-17] MEDS: metroNIDAZOLE 500 MG TAB PO SCH (06:32)
[2022-03-17] MEDS: InsuLIN REG 1unit/0.01ml Soln (100units/ml) SC SCH ×3 (06:34→17:10)
[2022-03-17 08:00] VITALS: BP 140/90
[2022-03-17 09:00] VITALS: BP 140/90
[2022-03-17] MEDS: ASPirin 81 mg TAB PO SCH (10:00)
[2022-03-17] MEDS: FUROSEMIDE 20 MG TAB PO SCH (10:01)
[2022-03-17] MEDS: amLODIPine BESYLATE 5 MG TAB PO SCH (10:02)
[2022-03-17] MEDS: LISINOPRIL 10 MG TAB PO SCH (10:02)
[2022-03-17] MEDS: PANTOPRAZOLE 40 MG TAB PO SCH (10:02)
[2022-03-17] MEDS: SODIUM CHLOR 0.9% PF (SALINE LOCK) 10ML VIAL/SYR IV SCH ×2 (10:03→23:59)
[2022-03-17] MEDS: METOPROLOL TARTRATE 50 MG TAB PO SCH (10:03)
[2022-03-17 13:00] VITALS: BP 157/94
[2022-03-17 16:47] VITALS: BP 145/99
[2022-03-17] MEDS: AMPICILLIN & SULBACTAM SODIUM 3 GM in SODIUM CHL 0.9% 100 ML IV SCH (16:56)
[2022-03-17 22:00] VITALS: BP 162/101
[2022-03-17] MEDS: ATORVASTATIN 20 MG TAB PO SCH (23:59)
[2022-03-18] MEDS: InsuLIN REG 1unit/0.01ml Soln (100units/ml) SC SCH ×4 (00:02→17:17)
[2022-03-18] MEDS: AMPICILLIN & SULBACTAM SODIUM 3 GM in SODIUM CHL 0.9% 100 ML IV SCH ×2 (03:00→15:00)
[2022-03-18 05:00] VITALS: BP 137/77
[2022-03-18] MEDS: ACCU-CHEK COMFORT CURVE STRIP VI SCH ×4 (07:09→17:14)
[2022-03-18 08:00] VITALS: BP 140/70
[2022-03-18 09:00] VITALS: BP 150/95
[2022-03-18] MEDS: ASPirin 81 mg TAB PO SCH (09:39)
[2022-03-18] MEDS: LISINOPRIL 10 MG TAB PO SCH (09:40)
[2022-03-18] MEDS: FUROSEMIDE 20 MG TAB PO SCH (09:40)
[2022-03-18] MEDS: PANTOPRAZOLE 40 MG TAB PO SCH (09:41)
[2022-03-18] MEDS: amLODIPine BESYLATE 5 MG TAB PO SCH (09:41)
[2022-03-18] MEDS: METOPROLOL TARTRATE 50 MG TAB PO SCH ×3 (09:41→23:00)
[2022-03-18] MEDS: SODIUM CHLOR 0.9% PF (SALINE LOCK) 10ML VIAL/SYR IV SCH (09:41)
[2022-03-18 13:00] VITALS: BP 137/88
[2022-03-18 16:46] VITALS: BP 142/93
[2022-03-18 22:00] VITALS: BP 164/101
[2022-03-19] MEDS: SODIUM CHLOR 0.9% PF (SALINE LOCK) 10ML VIAL/SYR IV SCH ×2 (00:24→10:22)
[2022-03-19] MEDS: ATORVASTATIN 20 MG TAB PO SCH (00:24)
[2022-03-19] MEDS: ACCU-CHEK COMFORT CURVE STRIP VI SCH ×3 (00:28→12:30)
[2022-03-19] MEDS: InsuLIN REG 1unit/0.01ml Soln (100units/ml) SC SCH ×4 (00:30→12:31)
[2022-03-19] MEDS: AMPICILLIN & SULBACTAM SODIUM 3 GM in SODIUM CHL 0.9% 100 ML IV SCH ×2 (03:13→15:34)
[2022-03-19 05:00] VITALS: BP 150/90
[2022-03-19 09:45] VITALS: BP 156/96
[2022-03-19] MEDS: ASPirin 81 mg TAB PO SCH (10:22)
[2022-03-19] MEDS: FUROSEMIDE 20 MG TAB PO SCH (10:22)
[2022-03-19] MEDS: LISINOPRIL 10 MG TAB PO SCH (10:23)
[2022-03-19] MEDS: METOPROLOL TARTRATE 50 MG TAB PO SCH (10:23)
[2022-03-19] MEDS: PANTOPRAZOLE 40 MG TAB PO SCH (10:23)
[2022-03-19] MEDS: amLODIPine BESYLATE 5 MG TAB PO SCH (10:23)
[2022-03-19 12:07] VITALS: BP 158/96
[2022-03-19 14:19] VITALS: BP 158/96
[2022-03-19 17:29] VITALS: BP 137/89
== END 2022-03-19 18:56 | disposition home health service (06) | DRG 314 ==
LOC: ER 19:51 → OVERFLOW 03-14 01:08 → WEST WING 03-14 02:24
PROVIDERS: ADMIT Nurse Practitioner; ATTEND Internal Medicine
PROC: 05HA33Z Insertion of Infusion Device into Left Brachial Vein, Percutaneous Approach (ICD-10-PCS; 2022-03-15)
PROC: B54NZZA Ultrasonography of Left Upper Extremity Veins, Guidance (ICD-10-PCS; 2022-03-15)
PROC: 0Y6R0Z3 Detachment at Right 2nd Toe, Low, Open Approach (ICD-10-PCS; principal; 2022-03-15 08:33)
DX: E11.621 Type 2 diabetes mellitus with foot ulcer (principal); N17.9 Acute kidney failure, unspecified; M86.8X7 Other osteomyelitis, ankle and foot; D63.1 Anemia in chronic kidney disease; L97.519 Non-pressure chronic ulcer of other part of right foot with unspecified severity; S91.301A Unspecified open wound, right foot, initial encounter; E11.22 Type 2 diabetes mellitus with diabetic chronic kidney disease; E11.69 Type 2 diabetes mellitus with other specified complication; E66.01 Morbid (severe) obesity due to excess calories; Z20.822 Contact with and (suspected) exposure to COVID-19; I12.9 Hypertensive chronic kidney disease with stage 1 through stage 4 chronic kidney disease, or unspecified chronic kidney disease; E78.5 Hyperlipidemia, unspecified; L98.494 Non-pressure chronic ulcer of skin of other sites with necrosis of bone; N18.4 Chronic kidney disease, stage 4 (severe); X58.XXXA Exposure to other specified factors, initial encounter; Z68.36 Body mass index [BMI] 36.0-36.9, adult; Z83.3 Family history of diabetes mellitus; Z82.49 Family history of ischemic heart disease and other diseases of the circulatory system; Z95.1 Presence of aortocoronary bypass graft; Z89.431 Acquired absence of right foot; Y93.89 Activity, other specified; Y92.89 Other specified places as the place of occurrence of the external cause; Y99.8 Other external cause status; Z79.4 Long term (current) use of insulin
CPT/HCPCS: 36415; 36569; 71045; 73620; 80048; 80053; 80202; 82962; 83036; 85025; 85610; 85652; 85730; 86141; 86850; 86900; 86901; 87077; 87186; 87205; 96361; 96365; 96367; G0378; J0690; J0696; J1815; J2250; J2405; J2704; J7060

== ENCOUNTER 2022-04-25 20:45 | Inpatient (IN) | payer MEDICAID ==
[~2022-04-25] VITALS: Ht 170.2 cm; Wt 108.0 kg
[~2022-04-25 20:45] MED LIST changes: +AML5T PO; -CYA100I PO; +FURO20TA3 PO; +LISI-716 PO; -SIMV-8 PO
[2022-04-25] MEDS ORDERED: SODIUM CHLORIDE 0.9% 1,000 ML IV ONE (22:45)
[2022-04-25 23:19] LABS: Urine Amorphous Crystal FEW /hpf (None Seen); Urine Bacteria NONE SEEN /hpf (None Seen); Urine Blood 1+ /uL (Negative); Urine Mucus FEW (None Seen); Urine Specific Gravity 1.019 (1.001-1.035); Urine WBC 4 /hpf (0 - 3)
[2022-04-26 00:07] LABS: Hemoglobin 10.7 g/dL (13.5-17.5); Nucleated Red Blood Cells % 0.1 %; Red Cell Distribution Width 16.1 % (11.8-14.3)
[2022-04-26 00:09] LABS: Basophils # (auto) 0.1 10 ^3/uL (0-0.2); Basophils % (auto) 1.2 % (0.0-2.0); Eosinophils # (auto) 0.5 10 ^3/uL (0-0.8); Eosinophils % (auto) 7.5 % (0.0-7.0); Hematocrit 33.1 % (41.0-53.0); Lymphocytes # (auto) 2.5 10 ^3/uL (0.4-5.4); Lymphocytes % (auto) 35.3 % (10.0-50.0); Mean Corpuscular Hemoglobin 25.9 pg (28.0-32.0); Mean Corpuscular Hgb Conc. 32.3 g/dL (32.0-36.0); Mean Corpuscular Volume 80.2 fL (80.0-100.0); Monocytes # (auto) 0.9 10 ^3/uL (0-1.3); Monocytes % (auto) 13.6 % (0.0-12.0); Neutrophils % (auto) 42.4 % (37.0-80.0); Red Blood Cells 4.13 10^6/uL (4.5-5.90)
[2022-04-26 00:49] LABS: Albumin 3.2 g/dL (3.4-5.0); BUN/Creatinine Ratio 11.4; Calcium 8.3 mg/dL (8.5-10.1); Potassium 4.9 mmol/L (3.5-5.1)
[2022-04-26 00:52] LABS: Bilirubin, Total 0.2 mg/dL (0.2-1.0); Total Protein 7.1 g/dL (6.4-8.2)
[2022-04-26 01:03] LABS: CRP High Sensitivity 1.34 mg/dL (< 0.3)
[2022-04-26] MEDS ORDERED: PIPERACILLIN-TAZOB 3.375GM 100 ML IV ONE (09:15)
[2022-04-26] MEDS ORDERED: CLINDAMYCIN 600MG IV 50 ML IV ONE (09:15)
[2022-04-26] MEDS ORDERED: ACETAMINOPHEN 325 MG TAB PO PRN (09:45)
[2022-04-26] MEDS ORDERED: MORPHINE SULFATE INJ 2 MG/ml SYRG IV PRN ×2 (09:45)
[2022-04-26] MEDS ORDERED: HYDROcodone-ACET 5/325MG TAB PO PRN (09:45)
[2022-04-26] MEDS ORDERED: NITROGLYCERIN 0.4 MG SL TAB SL PRN (09:45)
[2022-04-26] MEDS ORDERED: ONDANSETRON HCL 4 MG/2 ML VIAL IV PRN ×2 (09:45→14:30)
[2022-04-26] MEDS ORDERED: CEFEPIME 1GM/ 50ML 50 ML IV SCH (10:00)
[2022-04-26] MEDS ORDERED: MIDAZOLAM HCL 2MG/2ML 2ml VIAL (1mg/ml) ONE (11:27)
[2022-04-26] MEDS ORDERED: fentaNYL CITRATE 100 MCG/2 ML VL ONE (11:27)
[2022-04-26] MEDS ORDERED: ceFAZolin 1GM/50ML 100 ML IV ONE (11:32)
[2022-04-26] MEDS ORDERED: ceFAZolin 1GM VL ONE (11:48)
[2022-04-26] MEDS ORDERED: ROPIVACAINE 0.5% (5MG/ML) 20ML AMPULE IJ ONE (11:48)
[2022-04-26] MEDS ORDERED: BACITRACIN TOP OINT 1 UD PKG TOP ONE ×2 (12:05→12:21)
[2022-04-26] MEDS ORDERED: DexAMETHasone SOD PHOS 10MG/1ML VIAL INJ ONE (13:06)
[2022-04-26] MEDS ORDERED: DEXTROSE (50%) 50ML SYRG IV PRN (14:00)
[2022-04-26] MEDS ORDERED: LABETALOL HCL 5 MG/ML 4ML SYRINGE IV ONE ×2 (14:25→14:29)
[2022-04-26] MEDS ORDERED: MIDAZOLAM HCL 2MG/2ML 2ml VIAL (1mg/ml) IV PRN (14:30)
[2022-04-26] MEDS ORDERED: LABETALOL HCL 5 MG/ML 4ML SYRINGE IV PRN (14:30)
[2022-04-26] MEDS ORDERED: MORPHINE SULFATE 4 MG/ML SYR/VIAL IV PRN (14:30)
[2022-04-26] MEDS ORDERED: ePHEDrine SULFATE 50 MG/ML AMP IV PRN (14:30)
[2022-04-26] MEDS ORDERED: HYDROmorphone HCL 2 MG/ML VL/or syr IV PRN (14:30)
[2022-04-26 15:56] VITALS: BP 168/99
[2022-04-26] MEDS: SODIUM CHLORIDE 0.9% 1,000 ML IV SCH ×2 (16:28→18:32)
[2022-04-26 17:00] VITALS: BP 168/99
[2022-04-26 17:19] LABS: BUN/Creatinine Ratio 12.7; Phosphorus 4.5 mg/dL (2.5-4.90); Potassium 4.7 mmol/L (3.5-5.1); Uric Acid 7.2 mg/dL (3.5-7.2)
[2022-04-26] MEDS: ACCU-CHEK COMFORT CURVE STRIP VI SCH ×2 (17:49→22:00)
[2022-04-26] MEDS: CLINDAMYCIN 600MG IV 50 ML IV SCH (17:49)
[2022-04-26] MEDS: InsuLIN REG 1unit/0.01ml Soln (100units/ml) SC SCH ×2 (17:53→22:00)
[2022-04-26] MEDS: hydrALAZINE HCL 20 MG/ML VL IV PRN (18:06)
[2022-04-26 18:56] VITALS: BP 168/99
[2022-04-26 20:10] VITALS: BP 126/76
[2022-04-26] MEDS: CEFEPIME 1GM/ 50ML 50 ML IV SCH (21:51)
[2022-04-26 22:00] VITALS: BP 126/76
[2022-04-27] MEDS: CLINDAMYCIN 600MG IV 50 ML IV SCH ×3 (01:21→16:33)
[2022-04-27] MEDS: SODIUM CHLORIDE 0.9% 1,000 ML IV SCH ×3 (02:25→17:10)
[2022-04-27] MEDS: hydrALAZINE HCL 20 MG/ML VL IV PRN (04:59)
[2022-04-27 05:00] VITALS: BP 163/100
[2022-04-27 05:36] LABS: Basophils # (auto) 0 10 ^3/uL (0-0.2); Basophils % (auto) 0.2 % (0.0-2.0); Eosinophils # (auto) 0 10 ^3/uL (0-0.8); Hematocrit 31.1 % (41.0-53.0); Hemoglobin 10.3 g/dL (13.5-17.5); Lymphocytes # (auto) 0.6 10 ^3/uL (0.4-5.4); Lymphocytes % (auto) 9.2 % (10.0-50.0); Mean Corpuscular Hgb Conc. 33.1 g/dL (32.0-36.0); Monocytes # (auto) 0.3 10 ^3/uL (0-1.3)
[2022-04-27 05:39] LABS: Mean Corpuscular Hemoglobin 26.5 pg (28.0-32.0); Mean Corpuscular Volume 80.1 fL (80.0-100.0); Monocytes % (auto) 4.1 % (0.0-12.0); Neutrophils # (auto) 5.9 10 ^3/uL (1.6-8.6); Neutrophils % (auto) 86.5 % (37.0-80.0); Red Blood Cells 3.88 10^6/uL (4.5-5.90); White Blood Cell 6.8 10^3/uL (4.4-10.8)
[2022-04-27 05:58] LABS: Potassium 5.1 mmol/L (3.5-5.1)
[2022-04-27 06:07] LABS: INR 1.02 (0.9-1.15); Partial Thromboplastin Time 24.8 sec (24.6-33.4)
[2022-04-27 06:09] LABS: Albumin 2.7 g/dL (3.4-5.0); BUN/Creatinine Ratio 13.7; Bilirubin, Total 0.2 mg/dL (0.2-1.0); Calcium 8.1 mg/dL (8.5-10.1); Total Protein 6.8 g/dL (6.4-8.2)
[2022-04-27] MEDS: InsuLIN REG 1unit/0.01ml Soln (100units/ml) SC SCH ×4 (06:19→21:29)
[2022-04-27] MEDS: ACCU-CHEK COMFORT CURVE STRIP VI SCH ×4 (06:20→21:06)
[2022-04-27 08:00] VITALS: BP 157/102
[2022-04-27] MEDS: CEFEPIME 1GM/ 50ML 50 ML IV SCH ×2 (10:15→21:07)
[2022-04-27] MEDS: METOPROLOL TARTRATE 50 MG TAB PO SCH ×2 (10:16→21:06)
[2022-04-27] MEDS: ASPirin 81 mg TAB PO SCH (10:16)
[2022-04-27] MEDS: amLODIPine BESYLATE 5 MG TAB PO SCH (10:16)
[2022-04-27 13:00] VITALS: BP 142/89
[2022-04-27 17:00] VITALS: BP 142/93
[2022-04-27 22:00] VITALS: BP 153/90
[2022-04-28] MEDS: CLINDAMYCIN 600MG IV 50 ML IV SCH ×3 (00:40→16:59)
[2022-04-28] MEDS: SODIUM CHLORIDE 0.9% 1,000 ML IV SCH ×2 (04:47→11:45)
[2022-04-28 05:00] VITALS: BP 145/97
[2022-04-28 05:13] LABS: BUN/Creatinine Ratio 15.5; Calcium 7.7 mg/dL (8.5-10.1)
[2022-04-28] MEDS: ACCU-CHEK COMFORT CURVE STRIP VI SCH ×3 (06:12→17:01)
[2022-04-28] MEDS: InsuLIN REG 1unit/0.01ml Soln (100units/ml) SC SCH ×3 (06:16→17:11)
[2022-04-28 07:55] VITALS: BP 138/92
[2022-04-28 08:00] VITALS: BP 138/92
[2022-04-28] MEDS: ASPirin 81 mg TAB PO SCH (09:09)
[2022-04-28] MEDS: CEFEPIME 1GM/ 50ML 50 ML IV SCH (09:09)
[2022-04-28] MEDS: METOPROLOL TARTRATE 50 MG TAB PO SCH (09:10)
[2022-04-28] MEDS: amLODIPine BESYLATE 5 MG TAB PO SCH (09:10)
[2022-04-28] MEDS ORDERED: DOXY-286 PO (15:42)
[2022-04-28 16:20] VITALS: BP 161/96
[2022-04-28] MEDS: hydrALAZINE HCL 20 MG/ML VL IV PRN (17:00)
== END 2022-04-28 19:10 | disposition home health service (06) | DRG 314 ==
LOC: ER 20:47 → TELE 04-26 09:43 → TELE-CENTR 04-26 15:46
PROVIDERS: ADMIT Internal Medicine; ATTEND Internal Medicine
PROC: 0Y6R0Z0 Detachment at Right 2nd Toe, Complete, Open Approach (ICD-10-PCS; principal; 2022-04-26 13:07)
DX: M86.171 Other acute osteomyelitis, right ankle and foot (principal); N17.9 Acute kidney failure, unspecified; E11.22 Type 2 diabetes mellitus with diabetic chronic kidney disease; E11.621 Type 2 diabetes mellitus with foot ulcer; L97.509 Non-pressure chronic ulcer of other part of unspecified foot with unspecified severity; E11.69 Type 2 diabetes mellitus with other specified complication; E78.1 Pure hyperglyceridemia; E78.5 Hyperlipidemia, unspecified; I12.9 Hypertensive chronic kidney disease with stage 1 through stage 4 chronic kidney disease, or unspecified chronic kidney disease; Z20.822 Contact with and (suspected) exposure to COVID-19; L97.519 Non-pressure chronic ulcer of other part of right foot with unspecified severity; N18.4 Chronic kidney disease, stage 4 (severe); Z79.4 Long term (current) use of insulin; Z82.49 Family history of ischemic heart disease and other diseases of the circulatory system; Z83.3 Family history of diabetes mellitus; Z95.1 Presence of aortocoronary bypass graft
CPT/HCPCS: 36415; 71045; 73630; 80048; 80053; 81001; 82962; 84100; 84484; 84550; 85025; 85610; 85652; 85730; 86141; 87070; 87075; 87205; 87426; 93005; 96374; G0378; J0690; J1100; J1815; J2250; J3490

== ENCOUNTER 2022-05-15 21:47 | Inpatient (IN) | payer MEDICAID ==
[~2022-05-15] VITALS: Ht 170.2 cm; Wt 104.5 kg
[~2022-05-15 21:47] MED LIST changes: +DOXY-286 PO; -LISI-716 PO
[2022-05-15] MEDS ORDERED: DEXTROSE (50%) 50ML SYRG IV ONE (22:15)
[2022-05-15] MEDS ORDERED: METOPROLOL TARTRATE 50 MG TAB PO ONE (23:00)
[2022-05-15 23:18] LABS: Basophils # (auto) 0.1 10 ^3/uL (0-0.2); Eosinophils # (auto) 0 10 ^3/uL (0-0.8); Eosinophils % (auto) 0.2 % (0.0-7.0); Monocytes # (auto) 0.3 10 ^3/uL (0-1.3); Nucleated Red Blood Cells % 0.1 %
[2022-05-15 23:20] LABS: Basophils % (auto) 1.4 % (0.0-2.0); Hematocrit 34.4 % (41.0-53.0); Hemoglobin 11.2 g/dL (13.5-17.5); Lymphocytes % (auto) 15.9 % (10.0-50.0); Mean Corpuscular Hgb Conc. 32.5 g/dL (32.0-36.0); Mean Corpuscular Volume 80.1 fL (80.0-100.0); Neutrophils # (auto) 4.7 10 ^3/uL (1.6-8.6); Neutrophils % (auto) 77.5 % (37.0-80.0); Red Cell Distribution Width 15.8 % (11.8-14.3)
[2022-05-15 23:30] LABS: INR 1.06 (0.9-1.15); Partial Thromboplastin Time 28.2 sec (24.6-33.4)
[2022-05-15 23:34] LABS: Albumin 2.9 g/dL (3.4-5.0); Blood Urea Nitrogen 50 mg/dL (7-18); Calcium 8.1 mg/dL (8.5-10.1); Chloride 116 mmol/L (98-107); Glucose 70 mg/dL (74-106); Potassium 4.5 mmol/L (3.5-5.1); Sodium 144 mmol/L (136-145)
[2022-05-15 23:38] LABS: Alanine Aminotransferase 34 U/L (16-61); Anion Gap 13 (5-15); Aspartate Aminotransferase 32 U/L (15-37); BUN/Creatinine Ratio 13.2; Blood Alcohol < 3.0 mg/dL (0-5); Carbon Dioxide 15 mmol/L (21-32); GFR African American 22 mL/min; GFR Non-African American 18 mL/min
[2022-05-15 23:40] LABS: Alkaline Phosphatase 64 U/L (45-117); Bilirubin, Total 0.3 mg/dL (0.2-1.0); Magnesium 1.9 mg/dL (1.6-2.6); Total Protein 6.7 g/dL (6.4-8.2)
[2022-05-16] MEDS ORDERED: hydrALAZINE HCL 20 MG/ML VL IV ONE (00:45)
[2022-05-16] MEDS ORDERED: NITROGLYCERIN 0.4 MG SL TAB SL PRN (02:30)
[2022-05-16] MEDS ORDERED: ONDANSETRON HCL 4 MG/2 ML VIAL IV PRN (02:30)
[2022-05-16] MEDS ORDERED: cloNIDine HCL 0.1 MG TAB PO PRN (02:30)
[2022-05-16] MEDS ORDERED: ACETAMINOPHEN 325 MG TAB PO PRN (02:30)
[2022-05-16] MEDS ORDERED: DEXTROSE (50%) 50ML SYRG IV PRN ×2 (02:30→05:45)
[2022-05-16] MEDS ORDERED: MORPHINE SULFATE INJ 2 MG/ml SYRG IV PRN (02:30)
[2022-05-16] MEDS ORDERED: DEXTROSE 10% 1,000 ML IV ONE (05:45)
[2022-05-16] MEDS ORDERED: ACCU-CHEK COMFORT CURVE STRIP VI SCH (07:00)
[2022-05-16] MEDS ORDERED: InsuLIN REG 1unit/0.01ml Soln (100units/ml) SC SCH (07:00)
[2022-05-16] MEDS: InsuLIN REG 1unit/0.01ml Soln (100units/ml) SC SCH ×2 (08:00→12:05)
[2022-05-16] MEDS: ACCU-CHEK COMFORT CURVE STRIP VI SCH ×2 (08:06→12:00)
[2022-05-16] MEDS ORDERED: amLODIPine BESYLATE 5 MG TAB PO SCH (10:00)
[2022-05-16] MEDS ORDERED: ASPirin 81 mg TAB PO SCH (10:00)
[2022-05-16] MEDS ORDERED: PANTOPRAZOLE 40 MG TAB PO SCH (10:00)
[2022-05-16] MEDS ORDERED: METOPROLOL TARTRATE 50 MG TAB PO SCH (10:00)
[2022-05-16] MEDS ORDERED: FUROSEMIDE 20 MG TAB PO SCH (10:00)
[2022-05-16] MEDS ORDERED: INSU100I26 SC (13:16)
[2022-05-16] MEDS ORDERED: INSU1INJ19 SC (13:16)
[2022-05-16 14:01] VITALS: BP 159/90
== END 2022-05-16 14:04 | disposition home health service (06) | DRG 420 ==
LOC: EDBD 21:47 → ER 21:49 → TELE 05-16 02:38
PROVIDERS: ADMIT Nurse Practitioner; ATTEND Internal Medicine
DX: E11.649 Type 2 diabetes mellitus with hypoglycemia without coma (principal); G92.8 Other toxic encephalopathy; N18.4 Chronic kidney disease, stage 4 (severe); E11.22 Type 2 diabetes mellitus with diabetic chronic kidney disease; E78.5 Hyperlipidemia, unspecified; J32.0 Chronic maxillary sinusitis; I12.9 Hypertensive chronic kidney disease with stage 1 through stage 4 chronic kidney disease, or unspecified chronic kidney disease; G45.9 Transient cerebral ischemic attack, unspecified; Z20.822 Contact with and (suspected) exposure to COVID-19; I16.0 Hypertensive urgency; Z79.4 Long term (current) use of insulin; Z82.49 Family history of ischemic heart disease and other diseases of the circulatory system; Z91.83 Wandering in diseases classified elsewhere; Z95.1 Presence of aortocoronary bypass graft
CPT/HCPCS: 36415; 70450; 70551; 71045; 80053; 80320; 82553; 82962; 83735; 84484; 85025; 85610; 85730; 87426; 93005; 96361; 96372; 96374; G0378; J1815

== ENCOUNTER 2023-07-18 17:29 | Emergency (ER) | payer MEDICAID ==
[~2023-07-18] VITALS: Ht 167.6 cm; Wt 103.5 kg
[~2023-07-18 17:29] MED LIST changes: -DOXY-286 PO; -HYDR-4833 PO
[2023-07-18] MEDS ORDERED: HYD1TP TOP (22:49)
[2023-07-18 23:48] VITALS: BP 121/68; PULSE 88; RESP 20; TEMP 98; O2SAT 98
== END 2023-07-18 23:48 | disposition home or self-care (01) ==
LOC: ER 17:29
DX: T78.3XXA Angioneurotic edema, initial encounter (principal); L30.9 Dermatitis, unspecified; I12.9 Hypertensive chronic kidney disease with stage 1 through stage 4 chronic kidney disease, or unspecified chronic kidney disease; E11.22 Type 2 diabetes mellitus with diabetic chronic kidney disease; N18.9 Chronic kidney disease, unspecified; I25.10 Atherosclerotic heart disease of native coronary artery without angina pectoris; Z95.1 Presence of aortocoronary bypass graft; Z79.4 Long term (current) use of insulin; Z79.82 Long term (current) use of aspirin; Z79.899 Other long term (current) drug therapy
CPT/HCPCS: 82962